=== PATIENT | female | born 1970 | race Caucasian/White ===

== ENCOUNTER 2021-10-06 14:56 | Emergency (ER) | payer OTHER, SELFPAY ==
--- NOTE | ~2021-10-06 | XR_ITS ---
EXAM: XR hand RT min 3V, XR forearm RT 2V HISTORY: right hand pain after a fall COMPARISON: None available FINDINGS: Mildly comminuted and perhaps mildly impacted fracture of the proximal right fourth phalan ge, with likely intra-articular extension. Scattered punctate overlying debris. Normal mineralization . No dislocation. No lytic or blastic lesion. Joint spaces maintained. No erosion or periosteal snyder e. Soft tissues within normal limits. , IMPRESSION: Mildly comminuted, minimally displaced fracture the proximal right fourth phalange, with intra-articu lar extension. Reviewed, dictated and finalized at location K. IMPRESSION: Mildly comminuted, minimally displaced fracture the proximal right fourth phala nge, with intra-articular extension.
[2021-10-06 15:08] VITALS: BP 154/97; PULSE 85; RESP 18; TEMP 36.4; O2SAT 99
--- NOTE | 2021-10-06 15:24 | ED.GENADULT ---
HPI - General Adult General Chief complaint: Extremity Injury, Upper Stated complaint: rt hand injury Source: patient Mode of arrival: ambulatory Limitations: no limitations History of Present Illness HPI narrative: Patient presents for evaluation of injury to the right upper extremity. She indicates she tripped over her dog just prior to arrival. She landed on the ground. She did not hit her head nor have LOC. She is not on blood thinners. She now has pain in her right hand and right forearm. She indicates that she felt the affected digits bend backward and touch the forearm . She rates the pain 7 out of 10 in severity. She has some numbness in her right hand. Palpation and range of motion makes the pain worse. She is right-hand dominant. She is not diabetic. She does smoke. She notes some bleeding from her right hand. She reports some minor abrasions to her knees without significant pain. Tetanus was within the past three years. No additional complaints or concerns. Related Data Home Medications Medication Instructions Recorded Confirmed aspirin 81 mg PO DAILY 10/06/21 10/06/21 naproxen 500 mg PO BID 10/06/21 10/06/21 risankizumab-rzaa [Skyrizi] 150 mg SUBCUT DIRECTED 10/06/21 10/06/21 Allergies Allergy/AdvReac Type Severity Reaction Status Date / Time No Known Allergies Allergy Verified 10/06/21 15:37 Review of Systems Review of Systems: CONSTITUTIONAL: Denies fever, chills, or sweats. EYES: Denies visual changes, redness, or discharge. ENT: Denies rhinorrhea, congestion, sore throat, or otalgia. CARDIOVASCULAR: Denies chest pain, palpitations, or edema. RESPIRATORY: Denies cough or dyspnea. GASTROINTESTINAL: Denies abdominal pain, nausea, vomiting, or diarrhea. GENITOURINARY: Denies dysuria or hematuria. SKIN: Reports bleeding from right hand. MUSCULOSKELETAL: Reports pain in right hand and right forearm NEUROLOGIC: Denies headache, numbness, dizziness, or weakness. PSYCHIATRIC: Denies anxiety or depression. [facility] Past Medical History Medical History (Updated 10/06/21 @ 16:26 by Dillon Chaney, LULA, [place]RIE) Cerebral aneurysm Finger fracture History of stroke Surgical History Surgical History S/P coil embolization of cerebral aneurysm Family History Family History Father Aneurysm Social History Social History Smoking status: Current every day smoker Substance use: never Additional living arrangements comments: Lives with fiance Gender identity (if verbalized by the patient): Female Sexual Orientation (if Verbalized by the Patient): Straight or Heterosexual Spiritual care concerns: No Exam Narrative: GENERAL: Well-appearing, well-nourished, and in no acute distress. HEAD: Normocephalic, atraumatic. EYES: PERRLA and EOMI. ENT: Nares clear, no rhinorrhea or epistaxis. Mucous membranes moist. Oropharynx without tonsillar hypertrophy exudate or other lesions. Bilateral TMs pearly cunha nonbulging NECK: Supple. No adenopathy or masses. No carotid bruits or JVD CHEST: Clear to auscultation. No respiratory distress. No wheezes rales or rhonchi HEART: Regular rate and rhythm. No murmur heard. Normal peripheral pulses. ABDOMEN: Soft, nontender, nondistended, normal active bowel sounds. EXTREMITIES: Tenderness in the fourth and fifth digits of the right hand as well as in the MCP joints of the fourth and fifth digits. There is swelling in 4th and 5th digits of right hand. Tenderness and swelling in proximal right forearm. SKIN: Approximately 1.5 cm avulsion to the palmar aspect of the fourth digit of the right hand overlying the PIP joint. Approximately centimeter avulsion injury to the dorsal aspect of the proximal phalanx of the fifth digit of the right hand with some abrasions noted overlying th
== END 2021-10-06 16:28 | disposition home or self-care (01) ==
PROVIDERS: Emergency Provider Nurse Practitioner; PCP Internal Medicine
DX: S62.614A Displaced fracture of proximal phalanx of right ring finger, initial encounter for closed fracture (principal); F17.200 Nicotine dependence, unspecified, uncomplicated; Z79.01 Long term (current) use of anticoagulants; W18.31XA Fall on same level due to stepping on an object, initial encounter
CPT/HCPCS: 29125; 73090; 73130; 99214; A4565; G0463

== ENCOUNTER 2025-03-29 08:27 | Outpatient (CLI) | payer OTHER, SELFPAY ==
--- OUTSIDE RECORDS SUMMARY | 2025-03-29 08:48 | XMS_ITS | Clinical Summary ---
Author Organization [facility] Address [address] [place] [address] Care Team Providers Care Infection Control Practitioner Name Role Phone Morena Simon Primary Care Provider Source Comments [facility],non-owned Affiliates and Associated Physician Practices is amultiple site organization consisting of ambulatory clinics and hospital sitesin [place], [place], [place] and [place]. This disclosure is being madepursuant to the Care Everywhere program and may not contain all information available regarding this patient. Last updated 18.[facility] Allergies No known active allergies Medications * Be aware that medications may not be up to date on this document. Alwaysverify current medications with the patient. aspirin (ASPIRIN) 81 MG chew tablet Take 1 (one) tablet by mouth once daily Active multivitamin daily (THERAGRAN) tablet Take 1 (one) tablet by mouth daily with food Active SKYRIZI PEN 150 MG/ML injection Inject 1 mL subcutaneously Every 90 days 2 Active losartan (Cozaar) 50 MG tablet Take 1 (one) tablet by mouth every 24 hours 2 Active venlafaxine XR 24hr (Effexor XR) 75 MG capsule Take 1 (one) capsule by mouth once daily 3 Active BIOTIN PO Active Ascorbic Acid (VITAMIN C PO) Activ e Cholecalcifero l (VITAMIN D3 PO) Active CALCIUM PO Active Potassium (POTASSIMIN PO) Active latanoprost (Xalatan) 0.005 % ophthalmic solution Instill 1 (one) drop into both eyes at bedtime 7.5 mL 11 3 Active fluticasone propionate (Flonase) 50 MCG/ACT nasal spray Krypton 2 (two) sprays into each nostril once daily 16 g 3 3 Active azelastine (Astelin) 0.1 % nasal spray Krypton 1 (one) spray into each nostril 2 times daily 30 mL 3 3 Active Active Problems Problem Noted Date Diagnosed Date Glaucoma suspect, both eyes 02/14/2023 Overview (02/14/2023): Patient with no prior history of glaucoma who developed pressure spike as high as 46 left eye recently after routine YAG laser capsulotomy. Intraocular pressures also been documented 08/02 on the right. 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 Therefore we are initiating glaucoma medication both eyes until we have further information. Gonioscopy undilated shows wide open angles with 1+ trabecular meshwork pigmentation both eyes without compression. 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 (AF LURIA, FLUZONE TRIVALENT; 6MO+) (IIV3) 03/15/2021 FLU VACCINE TRI IIV3 SPLIT P F IM (FLUVIRIN) 03/25/2016,03/31/2015 INFLUENZA VACCINE 04/02/2019, 8,03/25/2016,2014 INFLUENZA VACCINE, QUADR. (F LUZONE; FLULAVAL; FLUARIX; AFLURIA QUADRIVALENT; 6MO+), 0.5 ML (IIV4) 03/15/2020,03/02/2019,03/04/2018,2016,03/04/2017 PNEUMOCOCCAL PPSV23 03/04/2017 Pneumococcal Pcv13 Conj 02/24/2017 Td (Adult), 2 Lf Tetanus Tox oid, Adsorbed, Pf 03/20/2017 Family History Medical History Relation Name Comments Psoriasis Mother Glaucoma Neg Hx Relation Name Status Comments Mother Social History Tobacco Use Types Packs/Day Years Used Date Smoking Tobacco: Every Day Cigarettes 1 37.7 Started: 07/06/1987 Smokeless Tobacco: Never Tobacco Cessation:Ready to Q uit: Not Asked; Counseling Given: Not Answered Alcohol Use Standard Drinks/Week Comments Yes 2 (1 standard drink = 0.6 oz pur e alcohol) ocassional Comments No Sex and Gender Information Value Date Recorded Sex Assigned at Not on file Legal Sex Female 6:30 AM WELT DRAWER Gender Identity Not on file Sexual Orientation Not on file Last Filed Vital Signs Vital Sign Reading Time Taken Comments Blood Pressure 161/91 04/08/2023 8:49 AM CDT Pulse 74 04/08/2023 8:49 AM CDT Temperature 36.7 C (98.1 F) 09/20/2021 10:34 AM CDT Respiratory Rate 18 11/15/2021 3:15 PM CDT Oxygen Saturation 100% 04/08/2023 8:49 AM CDT Inhaled Oxygen Concentration 21% 04/27/2018 1 0:40 AM WELT DRAWER Weight 98.4 kg (217 lb) 04/08/2023 8:49 AM CDT Height 182.9 cm (6') 04/08/2023 8:49 AM CDT Body Mass Index 29.43 04/08/2023 8:49 AM CDT Plan of Treatment Health Maintenance Due Date Last Done Comments STEPHANIE (AGES 45-75) - COLON CA SCREENING 1972 COLON MONITORING 1972 COLONOSCOPY - COLON CA SCREENING 1972 CT COLONOGRAPHY - COLON CA SCREENING 1972 Colorectal Cancer Screening 1972 FIT - COLON CA SCREENING 1972 FLEX SIG - COLON CA SCREENING 1972 LIPID TESTING 1972 MAMMOGRAM 1972 HEPATITIS B VACCINE (1 of 3 - 19+ 3-dose series) 1991 PAP with HPV 2002 DTAP/TDAP/TD VACCINES (1 - Tdap) 03/21/2017 03/20/2017 LUNG CANCER SCREENING 2022 PNEUMOCOCCAL VACCINE 50+ (3 of 3 - PCV20 or PCV21) 2022 03/04/2017, 02/24/2017 ZOSTER VACCINE (1 of 2) 2022 DEPRESSION SCREENING 06/09/2024 SCREENING FOR DIABETES 09/20/2024 09/20/2021, 2018 COVID-19 VACCINE (3 - season) 2025 04/10/2021, 08/14/2020 INFLUENZA VACCINE (#1) 2025 , 03/15/2020, 04/02/2019, Additional history exists HIV SCREENING Completed 06/10/2018 HEPATITIS C SCREENING Completed 11/04/2019 , 11/04/2019, 11/04/2019, Additional history exists HIB VACCINE Aged Out No longer eligi ble based on patient's age to complete this topic HPV VACCINE Aged Out No longer eligi ble based on patient's age to complete this topic MENINGOCOCCAL (Group B) VACCINE SHARED DECISION-MAKING Aged Out No longer eligible based on patient's age to complete this topic MENINGOCOCCAL GROUPS A/C/Y/W VACCINE Aged Out No longer eligible based on patient's age to complete this topic Medical Devices Implanted Type Area Director Medical Surgical Device Identifier Shelf Expiration Date Model / Serial / Lot Lens Iol 0 D +20 Nhung Mod L Acrsf Iq - [id number] Implanted:Qty: 1 on 10/01/2017 by Dillon Manley MD at [facility] Left: Eye [employer]re [employer] 01/07/2020 [id number] / [id number] / Stent Uret 6fr 28cm Pgtl Crv Tpr Tip Implanted:Qty: 1 on 07/06/2018 by Christian Fine MD at [facility] Left: Latasha Josephine [employer] [facility] 04/07/2020 [id number] / / [id number] Procedures Procedure Name Priority Date/Time Associated Diagnosis Comments COMPREHENSIVE METABOLIC PANEL Routine 09/20/2021 11:52 AM CDT Positive MARLO (antinuclear antibody) Dry eye syndrome of both eyes HEPATITIS C AB SCREEN RFLX NAAT QUANT STAT 06/10/2018 5:25 PM WELT DRAWER HIV-1 HIV-2 ANTIGEN/ANTIBODY STAT 06/10/2018 5:25 PM WELT DRAWER from Last 3 Months or Most Recently Relevant to Health Maintenance Results * (ABNORMAL) COMPREHENSIVE METABOLIC PANEL (09/20/2021 11:52 AM CDT) BUN 12 7 - 26 mg/dL 09/20/2021 12:48 PM [facility] Creatinine 0.68 0.56 - 0.96 mg/dL 09/20/2021 12:48 PM [facility] Sodium 137 136 - 145 mmol/L 09/20/2021 12:48 PM [facility] Potassium 3.8 3.5 - 4.5 mmol/L 09/20/2021 12:48 PM [facility] Chloride 113(H) 98 - 107 mmol/L 09/20/2021 12:48 PM [facility] CO2 24 22 - 29 mmol/L 09/20/2021 12:48 PM [facility] Glucose 83 70 - 115 mg/dL 09/20/2021 12:48 PM [facility] Calcium 10.4(H) 8.4 - 10.2 mg/dL 09/20/2021 12:48 PM [facility] Protein Total 7.9 6.0 - 8.3 g/dL 09/20/2021 12:48 PM [facility] Albumin 4.4 3.4 - 5.0 g/dL 09/20/2021 12:48 PM [facility] Bilirubin Total 0.6 0.2 - 1.2 mg/dL 09/20/2021 12:48 PM [facility] Alkaline Phosphatase 107 40 - 150 U/L 09/20/2021 12:48 PM [facility] ALT 15 5 - 55 U/L 09/20/2021 12:48 PM [facility] AST 19 5 - 34 U/L 09/20/2021 12:48 PM [facility] Anion Gap 4(L) 8 - 18 09/20/2021 12:48 PM [facility] BUN/Creatinine Ratio 18 7 - 23 09/20/2021 12:48 PM [facility] Osmolality Calculated 283 270 - 300 mOsm/kg 09/20/2021 12:48 PM [facility] Albumin/Globulin Ratio 1.3 1.1 - 2.3 09/20/2021 12:48 PM [facility] eGFR by CKD-EPI >90 >=90 mL/min/1.7 3 m2 09/20/2021 12:48 PM [facility] Blood BLOOD SPECIMEN / Unknown Lab Venipuncture / Unknown 09/20/2021 11:52 AM CDT 09/20/2021 12:11 PM CDT us Morenita Bates MD LAB - CHEMISTRY ORDERABLES Fi nal Result Performing Organization Address [facility] Co de Phone Number [facility] [address] [place] [phone], [facility] [phone] * HIV-1 HIV-2 ANTIGEN/ANTIBODY (06/10/2018 5:25 PM WELT DRAWER) HIV Antigen/Antibod y 1 & 2 Non-reacti ve Non-react marissa 06/10/2018 6:16 PM WELT DRAWER [facility] Comment: Neither HIV-1 p24 Antigen nor HIV-1/HIV-2 Antibodies are detected. Blood BLOOD SPECIMEN / Unknown Venipuncture / Unknown 06/10/2018 5:25 PM WELT DRAWER 06/10/2018 5:32 PM WELT DRAWER us Narendra Eaton MD LAB - HEMATOLOGY ORDERABLES F inal Result [address] [phone] * HEPATITIS C AB SCREEN RFLX NAAT QUANT (06/10/2018 5:25 PM WELT DRAWER) Hepatitis C Antibody Non-react marissa Non-reac tive 06/10/2018 6:20 PM WELT DRAWER [facility] Comment: Hepatitis C Antibody screen indicates no serologic evidence of past or current infection with Hepatitis C Virus. Patients with unexplained liver disease who are immunocompromised or suspected of having acute Hepatitis C infection may benefit from Nucleic Acid Test (EARNEST) for Hepatitis C Viral RNA to confirm Hepatitis C status. Blood BLOOD SPECIMEN / Unknown Venipuncture / Unknown 06/10/2018 5:25 PM WELT DRAWER 06/10/2018 5:32 PM WELT DRAWER Narendra Eaton MD LAB - CHEMISTRY ORDERABLES Fi nal Result Performing Organization Address [facility] Co de Phone Number [address] [phone] from Last 3 Months or Most Recently Relevant to Health Maintenance Insurance [facility] [employer] Member Subscriber Plan / Payer (Ef fective 2020-Present) Name:Karen Anderson Relation to Subscriber:Self Name:KAREN ANDERSON Payer ID:[id number] (NAIC) Type:HMO Address: [place] [id number] [address] [facility] Member Subscriber Plan / Payer (Ef fective 2020-Present) Name:Karen Anderson Relation to Subscriber:Self Name:KAREN ANDERSON Payer ID:[id number] (NAIC) Type:HMO Address: [address] [facility] Member Subscriber Plan / Payer (Ef fective 2020-Present) Name:Karen Anderson Relation to Subscriber:Self Name:KAREN ANDERSON Payer ID:[id number] (NAIC) Type:HMO Address: [address] [facility] Member Subscriber Plan / Payer (Ef fective 2020-Present) Name:Karen Anderson Relation to Subscriber:Self Name:KAREN ANDERSON Payer ID:[id number] (IC) Type:HMO Address: [address] [facility] Member Subscriber Plan / Payer (Ef fective 2020-Present) Name:Karen Anderson Relation to Subscriber:Self Name:KAREN ANDERSON Payer ID:[id number] (IC) Type:HMO Address: [address] [facility] Member Subscriber Plan / Payer (Ef fective 2020-Present) Name:Karen Anderson Relation to Subscriber:Self Name:KAREN ANDERSON Payer ID:[id number] (NAIC) Type:HMO Address: [address] [facility] Member Subscriber Plan / Payer (Ef fective 2020-) Name:Karen Anderson Relation to Subscriber:Self Name:KAREN ANDERSON Payer ID:[id number] (NAIC) Type:HMO Address: [address] [facility] Member Subscriber Plan / Payer (Ef fective 2020-) Name:Karen Anderson Relation to Subscriber:Self Name:KAREN ANDERSON Payer ID:[id number] (NAIC) Type:HMO Address: [address] Member Subscriber Plan / Payer (Ef fective 2020-) Name:Karen Anderson Relation to Subscriber:Self Name:KAREN ANDERSON Payer ID:[id number] (NAIC) Type:HMO Address: [address] Member Subscriber Plan / Payer (Ef fective 2020-) Name:Karen Anderson Relation to Subscriber:Self Name:KAREN ANDERSON Payer ID:[id number] (NAIC) Type:HMO Address: [address] CARE Member Subscriber Plan / Payer (Ef fective 2020-) Name:Karen Anderson Relation to Subscriber:Self Name:KAREN ANDERSON Payer ID:[id number] (NAIC) Type:HMO Address: [address] [facility] Member Subscriber Plan / Payer (Ef fective 2020-Present) Name:Karen Anderson Relation to Subscriber:Self Name:KAREN ANDERSON Payer ID:[id number] (NAIC) Type:HMO Address: [address] CARE Member Subscriber Plan / Payer (Ef fective 2020-) Name:Karen Anderson Relation to Subscriber:Self Name:KAREN ANDERSON Payer ID:[id number] (NAIC) Type:O Address: [address] CARE Member Subscriber Plan / Payer (Ef fective 2020-Present) Name:Karen Anderson Relation to Subscriber:Self Name:KAREN ANDERSON Payer ID:[id number] (NAIC) Type:HMO Address: [address] CARE Advance Directives * Full Code (Latest Code Status on File) Date Activated Date Inactivated Comments 07/06/2018 7:58 AM 07/06/2018 8:32 PM * Full Code Date Activated Date Inactivated Comments 04/27/2018 9:43 AM 04/27/2018 12:09 PM * Full Code Date Activated Date Inactivated Comments 04/27/2018 7:32 AM 04/27/2018 9:43 AM * Full Code Date Activated Date Inactivated Comments 10/01/2017 3:13 PM 10/01/2017 5:41 PM Care Teams Infection Control Practitioner Relationship Specialty Start Date End Date Morena Simon PA [address] [place] [id number] PCP - General 08/27/22
--- OUTSIDE RECORDS SUMMARY | 2025-03-29 08:48 | XMS_ITS | Encounter Summary ---
Author Organization [facility] Address [address] [place] [address] Phone Care Team Providers Care Literacy Consultant Name Role Phone Shilo Martinez MD Primary Care Provider Shilo Martinez MD Primary Care Provider Everardo Rinaldi MD Primary Care Provider Nellie Damian MD Primary Care Provider [phone] Encounter Details Date Type Department Care Team (Late st Contact Info) Description 05/09/2017 Orders Only [facility] ProviderElba MD [address] [place] [id number] Social History Tobacco Use Types Packs/Day Years Used Date Smoking Tobacco: Every Day Comments Unknown Sex and Gender Information Value Date Recorded Sex Assigned at Not on file Legal Sex Female 8:54 PM BUSINESS OBJECTS DEVELOPER Gender Identity Not on file Sexual Orientation Straight 01/07/2022 10 :57 AM CDT documented as of this encounter Plan of Treatment Not on file documented as of this encounter Procedures Procedure Name Priority Date/Time Associated Diagnosis Comments DISCHARGE LABORATORY CUMULATIVE REPORT 05/09/2017 12:00 AM BUSINESS OBJECTS DEVELOPER documented in this encounter Results * DISCHARGE LABORATORY CUMULATIVE REPORT (05/09/2017 12:00 AM BUSINESS OBJECTS DEVELOPER) Narrative 05/09/2017 12:00 AM BUSINESS OBJECTS DEVELOPER Ordered by an unspecified provider. us Historical Provider LAB BLOOD ORDERABLES Haritha l Result documented in this encounter Visit Diagnoses Not on filedocumented in this encounter Care Teams Literacy Consultant Relationship Specialty [place] [address] [place] [address] PCP - General 05/09/17 05/02/19 [place] [address] [place] [address] PCP - General 05/03/19 01/06/22 Everardo Rinaldi MD [address] [place] [id number] PCP - General Internal Medicine 01/07/22 01/29/24 Nellie Damian MD [address] [facility] [place] [address] PCP - General Family Medicine 01/30/24 documented as of this encounter
--- OUTSIDE RECORDS SUMMARY | 2025-03-29 08:48 | XMS_ITS | Clinical Summary ---
Author Organization [facility] Address [address] [place] [address] Care Team Providers Care Outsole Rounder Name Role Phone Nellie Damian MD Primary Care Provider Allergies No known active allergies Medications multivitamin tablet Take 1 tablet by mouth 3 (three) times a day with meals Active Skyrizi 150 mg/mL pen injector 01/03/2022 Active losartan-hydroC HLOROthiazide (HYZAAR) 50-12.5 mg per tablet 06/09/2023 Active venlafaxine XR (EFFEXOR-XR) 150 mg 24 hr capsuleIndicati ons:Vasomotor Symptoms associated with Menopause Take 1 capsule (150 mg total) by mouth daily 90 capsule 3 02/11/2024 Active Active Problems Problem Noted Date Diagnosed Date Kidney stone on left side 02/08/2022 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 Diplopia 01/26/2018 Hypertropia of right eye 01/26/2018 Intermittent exotropia 01/26/2018 Pseudophakia 01/26/2018 Vitreous hemorrhage, bilateral 01/26/2018 Cigarette smoker 05/06/2016 Cervical intraepithelial raymon plasia grade III with severe dysplasia 04/09/2016 Papanicolaou smear of cervix with high grade squamous intraepithelial lesion (HGSIL) 04/09/2016 Obstructive sleep apnea syndrome in adult 2015 After-cataract obscuring vision 09/08/2014 Immunizations Immunization Administration Dates Next Due Influenza, Quadrivalent, Spl it, Preservative Free, Intramuscular 03/15/2020,03/03/2019,03/02/2019,03/04,03/26/2017,03/04/2017 Influenza, Trivalent, IM (MDV) 03/15/2021 Influenza, Trivalent, Preser vative Free, Intramuscular 03/25/2016,03/31/2015 Influenza, Unspecified 04/02/2019,03/09/2018 Neil (J&J) SARS-CoV-2 Vaccination 08/14/2020 Moderna SARS-CoV-2 Monovalen t Vaccination (12+ YRS) 04/10/2021 Pneumococcal Conjugate PCV 13 02/24/2017 Pneumococcal Polysaccharide PPV23 03/04/2017 Td, adsorbed 03/20/2017 Surgical History Surgery Date Site/Laterality Comments KIDNEY SURGERY Kidney Surgery - (Added by TW Conv) LOOP ELECTROSURGICAL EXCISIO N PROCEDURE Cervical Loop Electrosurgical Excision (LEEP) - (Added by TW Conv) SHOULDER SURGERY Medical History Medical History Date Comments Personal history of transien t ischemic attack (TIA), and cerebral infarction without residual deficits History of stroke - (Added b y TW Conv) Family History Medical History Relation Name Comments Suicidality Brother Family history of suicide - (Added by TW Conv) Cerebral aneurysm Father Family his tory of cerebral aneurysm - (Added by TW Conv) Kidney cancer Father Family history of kidney cancer - (Added by TW Conv) Cancer Mother Diabetes Mother Hypertension Mother Family history of hypertension - (Added by TW Conv) Stroke Mother Breast cancer Mother's Sister Family hist ory of malignant neoplasm of breast - (Added by TW Conv) Breast cancer Sister 1 Family history of malignant neoplasm of breast - (Added by TW Conv) Cervical cancer Sister 2 Family histo ry of cervical cancer - different sister (Added by TW Conv) Relation Name Status Comments Brother Father Mother Mother's Sister Sister 1 Sister 2 Social History Tobacco Use Types Packs/Day Years Used Date Smoking Tobacco: Every Day Smokeless Tobacco: Never Tobacco Cessation:Ready to Q uit: Not Asked; Counseling Given: Not Answered Alcohol Use Standard Drinks/Week Comments Yes 0 (1 standard drink = 0.6 oz pur e alcohol) AUDIT-C Answer Date Recorded Q1: How often do you have a drink containing alc ohol? 2-3 times a week 02/11/2024 Q2: How many drinks containi ng alcohol do you have on a typical day when you are drinking? 1 or 2 02/11/2024 Frequency of Binge Drinking Not on file 09/2023 Personal Safety Answer Date Recorded Getting School Help Needed Not on file 08/03 Comments No Sex and Gender Information Value Date Recorded Sex Assigned at Not on file Legal Sex Female 8:54 PM RECREATION ACTIVITIES COORDINATOR Gender Identity Not on file Sexual Orientation Straight 01/07/2022 10 :57 AM CDT Obstetrics History Para Term AB IAB SAB Ectopic Multiple Livin g Live Births 2 2 2 2 2 Date Outcome GA Total Labor Labor/2nd/3rd Weight Sex Type Anes PTL Moira A1 A5 Name Clin 1988 Term Vag-S pont Living 1999 Term Vag-S pont Living Last Filed Vital Signs Vital Sign Reading Time Taken Comments Blood Pressure 148/89 02/11/2024 3:23 PM CDT Pulse 80 05/09/2017 10:44 AM RECREATION ACTIVITIES COORDINATOR Temperature - - Respiratory Rate - - Oxygen Saturation 96% 05/09/2017 10: 44 AM RECREATION ACTIVITIES COORDINATOR Inhaled Oxygen Concentration - - Weight 101.7 kg (224 lb 3.3 oz) 02/11/2024 3:23 PM CDT Height 182.9 cm (6') 02/11/2024 3:23 PM CDT Body Mass Index 30.41 02/11/2024 3:23 PM CDT Plan of Treatment Health Maintenance Due Date Last Done Comments Colon Cancer Screening-Colonoscopy 1970 Depression Screening 1970 Hepatitis C Screening 1970 Hepatitis B Screening 1990 DTaP/Tdap/Td Vaccine (1 - Tdap) 03/21/2017 7 Pneumococcal vaccine <65 (3 of 3 - PCV20 or PCV21) 2022 03/04/2017, 02/24/2017 Zoster Vaccine (1 of 2) 2022 Breast Cancer Screening-Mammogram 02/08/2023 022, 06/26/2019 Cervical Cancer Screening 02/08/2023 02/08/2022 Covid-19 Vaccine (4 - 2024-2 6 season) 2025 04/21/2022, 04/10/2021, 08/14/2020 Influenza Vaccine (#1) 2025 3, 04/21/2022, 03/15/2021, Additional history exists Regular Well Visit/Exam 18-64 02/10/2025, 02/08/2022, 05/25/2019 Procedures Procedure Name Priority Date/Time Associated Diagnosis Comments SCREENING MAMMOGRAM BILATERAL W ALVIN Schedule Routine, Read Routine (OP Routine) 02/08/2022 1:02 PM CDT Screening mammogram, encounter for PAP AND HIGH RISK HPV, REFLEX TO GENOTYPING Routine 02/08/2022 8:37 AM CDT Well woman exam with routine gynecological exam from Last 3 Months or Most Recently Relevant to Health Maintenance Results * Screening Mammogram Bilateral W Alvin (02/08/2022 1:02 PM CDT) Anatomical Region Laterality Modality Breast Bilateral Mammography Narrative 02/12/2022 12:44 PM CDT Mammogram Technique: Bilateral Digital Breast Tomosynthesis, Bilateral C-view 2D Screening mammogram. Views obtained: bilateral craniocaudal and bilateral mediolateral oblique. Computer Aided Detection was performed. Mammogram Findings: The present examination has been compared to prior imaging studies performed at [facility] on 06/26/2019 and 07/22/2019, and at [facility] on 11/08/2013. The breasts are almost entirely fatty. There is no suspicious abnormality in either breast. Impression: There is no mammographic evidence of malignancy. Annual screening mammography is recommended. OVERALL FINAL ASSESSMENT: BI-RADS CATEGORY 1: Negative. Procedure Note Minna Ibanez MD - 02/12/2022 Mammogram Technique: Bilateral Digital Breast Tomosynthesis, Bilateral C-view 2D Screening mammogram. Views obtained: bilateral craniocaudal and bilateral mediolateral oblique. Computer Aided Detection was performed. Mammogram Findings: The present examination has been compared to prior imaging studies performed at [facility] on 06/26/2019 and 07/22/2019, and at [facility]. on 11/08/2013. The breasts are almost entirely fatty. There is no suspicious abnormality in either breast. Impression: There is no mammographic evidence of malignancy. Annual screening mammography is recommended. OVERALL FINAL ASSESSMENT: BI-RADS CATEGORY 1: Negative. us Self Screening Mammogram IMG MAMMO PROCEDURES Fi nal Result * Pap and High Risk HPV, reflex to Genotyping (02/08/2022 8:37 AM CDT) Thin prep (Pap test) 02/08/2022 8:37 AM CDT 02/08/2022 10:13 AM CDT Narrative PATHOLOGY [facility] - 02/26/2022 9:58 AM CDT EPIC results best viewed via link to PDF [facility] [place] [address] Note to Patients: This report may contain a detailed description of human tissue sent by a health care provider to the laboratory for pathologic evaluation. The content of this report is essential for diagnosis and may provide important critical findings. This information may be unfamiliar to patients to review without a medical professional present. It is advised that the patient review this report in the presence of a health care provider who can answer questions and explain the details. CYTOPATHOLOGY REPORT FINAL Patient Name: KAREN ANDERSON Gender: F : 1970 (Age: 51) Address: [address] [place] [id number] Hospital #: [id number] Service: GROUND LAYER Location: Patient Type: [facility] SPECIMEN Taken: 02/08/2022 Received: 02/08/2022 Accessioned: 02/14/2022 Reported: 02/26/2022 Physician(s): Chanda Akbar M.D. FINAL INTERPRETATION SOURCE OF SPECIMEN: Liquid based Thin Prep pap with HPV STATEMENT OF ADEQUACY: - Satisfactory for evaluation - Endocervical cells/transformation zone sample present GENERAL CATEGORY: - Negative for squamous intraepithelial lesion or malignancy Comments HPV Result: NEGATIVE for high risk types of Human Papilloma Virus (HPV) RNA This probe detects the presence of HPV types: 16, 18, 31, 33, 35, 39, 45, 51, 52, 56, 58, 59, 66 and 68. This HPV test was performed at [facility] in [place], [place] utilizing the Gen-Probe Aptima assay. This specimen has been rescreened in accordance with this laboratory's Visual Basic Programmer Program. 02/26/2022 09:[address] (ASCP) Report Electronically Reviewed and Signed Out By BECKY Godinez(ASCP) 02/26/2022 09:58:03 Cervicovaginal Cytology (Pap Test) Disclaimer: The Pap test is a screening test used to detect cervical cancer and its precursors; it is not a diagnostic procedure. False negative and false positive results do occur. Pap test results should be interpreted in the context of pertinent clinical information and biopsy results as indicated. Gross Description A. Liquid based Thin Prep pap with HPV: Cervical/vaginal - Screening ThinPrep with HPV Clinical Diagnosis and History Last Menstrual Period: none Menstrual History: Ablation The patient is a 51 year old woman with h/o ROBERT III s/p LEEP 2016 The HPV test was performed by [facility], [address] [place] [address]. Report Images and scanned documents, if included only viewable in PDF version The performance characteristics of some immunohistochemical stains, in-situ hybridization and fluorescence in-situ hybridization tests and immunophenotyping by flow cytometry cited in this report (if any) were determined by the Surgical Pathology Department at [facility] as part of an ongoing quality officer program and in compliance with federally mandated regulations drawn from the Clinical Laboratory Improvement Act of 1988 (CLIA '88). Some of these tests rely on the use of analyte specific reagents and are subject to specific labeling requirements by the US Food and Drug Administration. Such diagnostic tests may only be performed in a facility that is certified by the Department of Health and Human Services as a high complexity laboratory under CLIA '88. The FDA has determined that such clearance or approval is not necessary. This test is used for clinical purposes. It should not be regarded as investigational or for research. Nevertheless, federal rules concerning the medical use of analyte specific reagents require that the following disclaimer be attached to the report: This test was developed and its performance characteristics determined by the Surgical Pathology Department of [facility]. It has not been cleared or approved by the U. S. Food and Drug Administration. Chanda Akbar MD LAB CYTOLOGY ORDERABLES F inal Result PATHOLOGY [facility] [address] Floor [place], [place] [phone] from Last 3 Months or Most Recently Relevant to Health Maintenance Insurance [employer] [facility] H[facility]/PPO Address: [address] [address] [place] [address] [employer] [id number] ID Care Teams Outsole Rounder Relationship Specialty Start Date End Date Nellie Damian MD PCP - General Family Medicine 01/30/24
[2025-04-19 14:11] VITALS: BMI 27.3
--- NOTE | 2025-04-19 14:11 | P.SLEEP_ITS ---
Sleep Study - Home Unattended Date of Study: 03/29/25 Ordering Provider: Morena Simon PA-C Interpreting Provider: Aurora Lozoya, DO Home Sleep Study Type: Watch PAT Height: 1.85 m Weight: 93.894 kg Body Mass Index: 27.3 Neck Circumference (inches): 17 [place]: 13 Reason for Sleep Study Known NANCI and is on CPAP. Needed new study to get new equipment. Sleep History The patient is a 54-year-old female that had a sleep study ordered by her primary care for evaluation of sleep apnea. The patient admits to snoring loudly, excessive daytime sleepiness, interruptions in breathing while asleep, trouble falling asleep and trouble staying asleep. She does choke or gasp at night. She denies having trouble breathing on her back. She does have morning headaches. She does have a dry or sore mouth / throat in the morning. She has nocturnal heartburn. She denies nocturia. She does have difficulty returning to sleep if she wakes up throughout the night. She denies any hypnotic or sedative use. She denies feeling anxious about sleep. He does feel tired or sleepy during the day. She does feel tired in the morning. She does have the urge to fall asleep during the day. She does feel drowsy while driving. She denies sleep paralysis, cataplexy and hypnagogic/ hypnopompic hallucinations. She does clench or grind her teeth. She denies kicking or jerking her legs excessively. She denies having a restless feeling in her legs. She goes to bed at 10:30 p.m. on work days and at 10:15 p.m. on her days off. It takes her 45 minutes to fall asleep on work days and 30 minutes on her days off. She gets 6-1/2 hours of sleep on work days and 7 hours on her days off. Her sleep is somewhat restorative on days off. She denies taking any planned naps. She denies dream enactment behavior. She denies sleep walking. She consumes 3-4 cups of caffeinated beverage per day. She consumes 2 alcoholic beverages 1-2 nights per week. She smokes 6-20 cigarettes per day. She does exercise 1-2 nights per week. PMFSH Past Medical History Medical History Hypothyroidism (12/20/24) Anxiety and depression Psoriatic arthritis Psoriasis Kidney stone Glaucoma NANCI (obstructive sleep apnea) uses CPAP, gets supplies through [employer]; had in hospital sleep study '08 and at home study '13 Finger fracture right 4th History of stroke Cerebral aneurysm Surgical History Surgical History History of adenectomy History of lithotripsy S/P coil embolization of cerebral aneurysm Family History Family History Father Aneurysm Hypertension Mother Hypertension Sibling Breast cancer Other Breast cancer Social History Social History Social History: 01/18/25 very confident with medical forms Smoking packs per day: 1 Smoking cigarettes per day: 20.0 Years smoked: 35 Smoking pack-years: 35.00 Smoking status: Current every day smoker Tobacco type: cigarettes Alcohol intake: current Drinks per week: 1 Alcohol use details: social Substance use: never Substance use type: does not use Lack of Transportation: No Lack of Food: Never True Current Housing: I Have Housing Concerned About Future Housing: No Difficulty Paying Gas/Electric Bills: No Difficulty Paying for Meds: No Currently Unemployed: No Education: Bachelor's Degree Difficulty w/ Childcare or Family Care: No Living arrangements: with family Additional living arrangements comments: Lives with fiance Occupation/Education: occupation Gender identity (if verbalized by the patient): Female Sexual Orientation (if Verbalized by the Patient): Straight or Heterosexual Spiritual care concerns: No Medications Home Medications ?Medication ?Instructions ?Recorded ?Confirmed ?Type aspirin 81 mg tablet 81 mg PO DAILY 10/06/2101/07 History risankizumab-rzaa 150 mg/mL 150 mg subcut DIRECTED 10/06/21 01/24/25 History subcutaneous pen injector (Andrewyrblessing) levothyroxine 88 mcg tablet 88 mcg PO DAILY #90 tabs 0 01/24/25 01/24/25 Rx losartan 100 mg tablet 100 mg PO DAILY #90 tabs 01/24/25 Rx venlafaxine 75 mg capsule,extended 75 mg PO DAILY #90 caps 01/24/25 01/24/25 Rx release 24 hr Sleep Procedure The sleep study was completed using Gridstore[employer] a technically adequate device with seven channels: peripheral arterial tone, actigraphy, body position, snore, respiratory movement, pulse oximetry, sleep staging, and heart rate. Prior to using the device, the patient received verbal and written instructions for its application and was provided with the help desk phone number for additional telephonic instruction with 24-hour availability of qualified personnel to answer questions. The study was scored using CMS guidelines. Sleep Architecture The total recording time is 6 hrs, 37 min. The total sleep time is 6 hrs, 7 min. Sleep latency is 6 minutes. REM latency is 207 minutes. The patient had 8 episodes of waking. Sleep architecture shows 0.0% deep sleep, 85.8% light sleep, and (as % Total Sleep Time) showed NREM (Light 85.8%; Deep 0.0%), and a 14.2% stage REM. The patient spent 75.5% of total sleep time in the supine position. Sleep efficiency was 92.44. Respiratory Analysis The overall AHI (pAHI 4%:) is 100.4. The overall AHI (pAHI 3%:) is 105.4. The central AHI is 6.2. The AHI was 118.1 in NREM and 32.4 in REM sleep. The AHI was 105.4 in Supine and 105.1 in Non-supine sleep. Percent of Pa Oliva respirations is 10.4. Oximetry Data The oxygen desaturation index (ERNESTINA 4%:) is 81.7. The mean saturation is 94%, and the lowest saturation is 88%. Time spent with saturation < 88% is 0.1 minutes. Snoring Profile Snoring average intensity is 45 dB. The patient snored above 45 decibels for 122.4 minutes, 33.3% of sleep time. Cardiac Profile The average pulse rate is 68 beats per minutes. The lowest pulse rate is 44 bpm. The highest pulse rate reported is 98 bpm. Atrial fibrillation was not detected. Premature beats occur <0.1 per minute. Assessment and Plan Assessment and Plan (1) NANCI (obstructive sleep apnea): Code(s): G47.33 - Obstructive sleep apnea (adult) (pediatric) Status: Acute Assessment and Plan: The patient had an overall AHI of 100.4 with desaturation down to 88%. This is consistent with extremely severe sleep apnea. The patient had a central apnea index of 6.2, which is elevated (normal <5). Due to the severity of her sleep apnea as well as the presence of Pa-Oliva respirations, she is not a candidate for AutoPAP. I recommend that the patient had a CPAP titration with the use of a hypnotic to ensure we obtain enough sleep data find an optimal pressure setting. (2) Pa-Oliva respiration: Code(s): R06.3 - Periodic breathing Status: Acute Assessment and Plan: Pa-Oliva respirations were present for 10.4% of total recording time. The patient should have an echocardiogram to rule out cardiogenic causes for an elevated central apnea index Pa-Oliva respirations. Data The data obtained during this sleep study is adequate for interpretation. Certification This sleep study has been reviewed by a board certified sleep medicine physician.
== END 2025-04-01 06:28 | disposition home or self-care (01) ==
PROVIDERS: PCP Physician Assistant Medical; Visit Provider Physician Assistant Medical
DX: G47.33 Obstructive sleep apnea (adult) (pediatric) (principal)
CPT/HCPCS: 95800

== ENCOUNTER 2025-05-23 08:15 | Outpatient (CLI) | payer OTHER, SELFPAY ==
--- NOTE | 2025-06-20 09:19 | P.SLEEP_ITS ---
Sleep Study Date of Study: 05/23/25 Ordering Provider: Morena Simon PA-C Interpreting Physician: Aurora Lozoya DO Sleep Study Type: CPAP Titration Height: 1.85 m Weight: 93.894 kg Body Mass Index: 27.3 Neck Circumference (inches): 17 [place]: 13 Reason for Sleep Study Daytime hypersomnia Sleep History The patient is a 54-year-old female that had a sleep study ordered by her primary care for evaluation of sleep apnea. The patient admits to snoring loudly, excessive daytime sleepiness, interruptions in breathing while asleep, trouble falling asleep and trouble staying asleep. She does choke or gasp at night. She denies having trouble breathing on her back. She does have morning headaches. She does have a dry or sore mouth / throat in the morning. She has nocturnal heartburn. She denies nocturia. She does have difficulty returning to sleep if she wakes up throughout the night. She denies any hypnotic or sedative use. She denies feeling anxious about sleep. He does feel tired or sleepy during the day. She does feel tired in the morning. She does have the urge to fall asleep during the day. She does feel drowsy while driving. She denies sleep paralysis, cataplexy and hypnagogic/ hypnopompic hallucinations. She does clench or grind her teeth. She denies kicking or jerking her legs excessively. She denies having a restless feeling in her legs. She goes to bed at 10:30 p.m. on work days and at 10:15 p.m. on her days off. It takes her 45 minutes to fall asleep on work days and 30 minutes on her days off. She gets 6-1/2 hours of sleep on work days and 7 hours on her days off. Her sleep is somewhat restorative on days off. She denies taking any planned naps. She denies dream enactment behavior. She denies sleep walking. She consumes 3-4 cups of caffeinated beverage per day. She consumes 2 alcoholic beverages 1-2 nights per week. She smokes 6-20 cigarettes per day. She does exercise 1-2 nights per week. ON LICENSE OF [facility] Past Medical History Medical History Hypothyroidism (12/20/24) Anxiety and depression Psoriatic arthritis Psoriasis Kidney stone Glaucoma NANCI (obstructive sleep apnea) uses CPAP, gets supplies through [employer]; had in hospital sleep study '08 and at home study '13 Finger fracture right 4th History of stroke Cerebral aneurysm Surgical History Surgical History History of adenectomy History of lithotripsy S/P coil embolization of cerebral aneurysm Family History Family History Father Aneurysm Hypertension Mother Hypertension Sibling Breast cancer Other Breast cancer Social History Social History Social History: 01/18/25 very confident with medical forms Smoking packs per day: 1 Smoking cigarettes per day: 20.0 Years smoked: 35 Smoking pack-years: 35.00 Smoking status: Current every day smoker Tobacco type: cigarettes Alcohol intake: current Drinks per week: 1 Alcohol use details: social Substance use: never Substance use type: does not use Lack of Transportation: No Lack of Food: Never True Current Housing: I Have Housing Concerned About Future Housing: No Difficulty Paying Gas/Electric Bills: No Difficulty Paying for Meds: No Currently Unemployed: No Education: Bachelor's Degree Difficulty w/ Childcare or Family Care: No Living arrangements: with family Additional living arrangements comments: Lives with fiance Occupation/Education: occupation Gender identity (if verbalized by the patient): Female Sexual Orientation (if Verbalized by the Patient): Straight or Heterosexual Spiritual care concerns: No Medications Home Medications ?Medication ?Instructions ?Recorded ?Confirmed ?Type aspirin 81 mg tablet 81 mg PO DAILY 10/06/2101/07 History risankizumab-rzaa 150 mg/mL 150 mg subcut DIRECTED 10/06/21 01/24/25 History subcutaneous pen injector (Ovi) levothyroxine 88 mcg tablet 88 mcg PO DAILY #90 tabs 0 01/24/25 01/24/25 Rx losartan 100 mg tablet 100 mg PO DAILY #90 tabs 01/24/25 Rx venlafaxine 75 mg capsule,extended 75 mg PO DAILY #90 caps 01/24/25 01/24/25 Rx release 24 hr Sleep Procedure A full night CPAP Titration using the ufindads multi-channel system recorded the standard physiologic parameters including EEG, EOG, submentalis EMG, anterior tibialis EMG, EKG, body position, nasal and oral airflow using nasal pressure sensor and thermistor.? Respiratory parameters of chest and abdominal movements were recorded with Respiratory Inductance Plethysmography belts. Oxygen saturation was recorded by pulse oximetry. Video monitoring was also performed. Sleep stages, periodic limb movements, and EEG arousals were scored in 30 second epochs according to the criteria of the AASM Scoring Manual. The Apnea-Hypopnea Index was calculated using [facility] guidelines for definition of hypopnea with 4% O2 desaturations while scoring respiratory events. Sleep Architecture The total recording time was 470.4 minutes.? The total sleep time was 421.0 minutes. Sleep latency was 13.0 minutes. REM latency was 243.5 minutes. Sleep efficiency was 89.5%. The patient had 46 awakenings for an awakening index of 6.6. Wake after Sleep Onset time was 36.0 minutes. The patient spent 48.5 minutes, 11.5% of total sleep time in Stage N1. The patient spent 265.5 minutes, 63.1% in Stage N2. The patient spent 56.0 minutes, 13.3% in Stage N3. The patient spent 51.0 minutes, 12.1% in Stage REM. Respiratory Analysis The patient had 27 hypopneas, 83 obstructive apneas, 2 mixed apneas, and 40 central apneas for an overall Apnea Hypopnea Index of 21.7 events per hour. The REM Apnea Hypopnea Index was 2.4. The NREM Apnea Hypopnea Index was 24.3. The patient had a Central Apnea Hypopnea Index of 5.7. There was no evidence of [place] Respirations. The patient was started on CPAP 5 cm H2O and titrated to CPAP 16 cm H2O with EPR of 2 due to obstructive/central apneas and hypopneas. The patient was able to fall asleep starting on CPAP 5 cm H2O. The patient was able to achieve REM sleep starting on CPAP 12 cm H2O with EPR of 2. The lowest residual AHI achieved during this study was 8.1 on CPAP 16 with EPR of 2. On CPAP 16 cm H2O with EPR of 2, the patient spent 4.5 minutes in NREM and 40 minutes in REM sleep with 1 obstructive apnea and 5 central apneas. The patient had a sleep efficiency of 88.1% on this pressure setting. The majority of the central apneas that the patient had on this pressure setting were post-arousal centrals. Arousals There were 258 total arousals for an arousal index of 36.8. There were 46 spontaneous arousals for an index of 6.6. ?There were 133 arousals due to respiratory events for an index of 19.0. There were 33 arousals due to periodic limb movements for an index of 4.7.? There were 45 arousals due to isolated limb movements for an index of 6.4. Periodic Limb Movements The patient had 61 isolated limb movements with an index of 8.7. The patient had 68 periodic limb movements with index of 9.7. Patient had a total of 129 limb movements with a total limb movement index of 18.4. Oximetry Data The patient had an average oxygen saturation of 94.1% in sleep with a minimum oxygen saturation of 89.0% and a maximum oxygen saturation of 98.0%. The patient had 56 oxygen desaturations that were 4% or greater resulting in an Oxygen Desaturation Index of 8.0.? The patient spent 0 minutes of total sleep time with an oxygen saturation below 88%. Snoring Profile Mild to moderate snoring was present in the beginning of the study. The snoring resolved once the patient was titrated to CPAP 15 cm H2O with EPR of 2. Cardiac Profile The EKG showed normal sinus rhythm with rare PVCs. The patient had an average pulse rate of 68.0 bpm with a minimum pulse rate of 53.0 bpm and a maximum pulse rate of 89.0 bpm. ? EEG Profile No signs of seizure activity seen. Assessment and Plan Assessment and Plan (1) NANCI (obstructive sleep apnea): Code(s): G47.33 - Obstructive sleep apnea (adult) (pediatric) Status: Acute Assessment and Plan: The patient was started on CPAP 5 cm H2O and titrated to CPAP 16 cm H2O with EPR of 2 due to obstructive/central apneas and hypopneas. The patient's sleep apnea significantly improved on the final pressure setting. Her residual AHI will likely lower further once the treatment-induced central apneas resolve. I recommend that the patient be prescribed CPAP 16cm H2O with EPR of 2, size medium Resmed AirTouch F20 full face mask, CPAP filters/heated tubing and heated humidity. This should be used with all episodes of sleep.? Compliance should be reviewed within 31-90 days of starting therapy for usage greater than 4 hours per night greater than 70% of the nights. The patient should be asked about symptoms such as?excessive daytime sleepiness, quality of sleep, decreased nocturia, in creased?mental functioning such as memory, mood, and concentration. Data The data obtained during this sleep study is adequate for interpretation. Certification This sleep study has been reviewed by a board certified sleep medicine physician.
[2025-06-21 17:55] VITALS: BMI 27.3
== END 2025-05-24 06:40 | disposition home or self-care (01) ==
PROVIDERS: PCP Physician Assistant Medical; Visit Provider Physician Assistant Medical
DX: G47.33 Obstructive sleep apnea (adult) (pediatric) (principal)
CPT/HCPCS: 95811